=== PATIENT | female | born 1995 | race Caucasian/White ===

== ENCOUNTER 2024-10-01 09:50 | Emergency (ER) | payer MEDICAID, SELFPAY ==
[2024-10-01 10:21] VITALS: BP 113/80; PULSE 85; RESP 16; TEMP 36.8; O2SAT 99; BMI 30.2
--- NOTE | 2024-10-01 10:35 | PC.NURSE ---
no answer in lobby when called for room in ed
--- NOTE | 2024-10-01 11:24 | PD.EDRME ---
Rapid Medical Screening Exam E Arrival date/time: 10/01/24 09:50 29-year-old female presents to the emergency department with complaints of generalized abdominal pain. I have greeted and performed a focused initial assessment of this patient. Initial appropriate labs ordered at this time. A comprehensive ED assessment and evaluation of the patient and analysis of all test and completion of medical decision making process will be conducted by additional ED provider. Chief Complaint: Abdominal Pain Time Seen by Provider: 10/01/24 10:29 Vital signs: Vital Signs Temperature 98.2 F 10/01/24 10:21 Pulse Rate 85 10/01/24 10:21 Respiratory Rate 16 10/01/24 10:21 Blood Pressure 113/80 10/01/24 10:21 Pulse Oximetry (%) 99 10/01/24 10:21 Oxygen Delivery Method Room Air 10/01/24 10:21
--- NOTE | 2024-10-01 12:05 | PC.NURSE ---
no answer in lobby when called for room in ed
--- NOTE | 2024-10-01 13:59 | PC.NURSE ---
no answer in lobby when called for room in ed
--- NOTE | 2024-10-01 14:01 | PC.NURSE ---
no answer in lobby when called for room in ed
== END 2024-10-01 10:35 | disposition left against medical advice (07) ==
PROVIDERS: Emergency Provider Emergency Medicine
DX: R10.84 Generalized abdominal pain (principal); Z53.21 Procedure and treatment not carried out due to patient leaving prior to being seen by health care provider
CPT/HCPCS: 99281

== ENCOUNTER 2025-01-24 14:06 | Emergency (ER) | payer MEDICAID, SELFPAY ==
[2025-01-24 14:07] VITALS: BMI 30.5
[2025-01-24 14:20] VITALS: BP 124/81; PULSE 79; RESP 16; TEMP 37.1; O2SAT 99
--- NOTE | 2025-01-24 14:43 | EDNOTE_ITS ---
ED Wound/Laceration-RME/HPI General Chief Complaint: Wound/Laceration Stated Complaint: LAC R) MIDDLE FINGER; CUT ON PADDOCK JUDGE BLADE Time Seen by Provider: 01/24/25 14:11 Arrival date/time: 01/24/25 14:06 29-year-old [id number] female presents to the ED with a chief complaint of right middle finger laceration secondary to an injury she states sustained at home. She was trying to empty out a manager fast food when the blade fell out of place and came down and struck her right middle fingertip. She denies any numbness or tingling distally she indicates she is up-to-date on her tetanus. Limitations: no limitations Related Data Previous Rx's ?Medication ?Instructions ?Recorded meclizine 25 mg tablet 25 mg PO BID PRN dizziness # 20 tabs 05/22/22 ondansetron HCl 4 mg tablet 4 mg PO TID #20 tabs 05/22 Allergies Allergy/AdvReac Type Severity Reaction Status Date / Time egg Allergy Severe Vomiting Verified 01/24/25 14:09 metformin Allergy Severe Vomiting Verified 01/24/25 14:09 Review of Systems Review of Systems Systems Reviewed: All systems reviewed, normal except as documented Narrative Review of Systems: Denies recent illness with Fever, chills, cough, upper respiratory symptoms, nausea, vomiting, diarrhea, or abdominal pain. Past Medical History Past Medical History NEUROLOGIC: Negative Neurological Disorders or Seizures CARDIAC: Negative Cardiac Disorders, Congestive Heart Failure, Edema, Cellulitis or Varicose Veins RESPIRATORY: Negative Chronic Obstructive Pulmonary Disease (COPD), Tuberculosis, Pulmonary Embolism or Sleep Apnea GASTROINTESTINAL: Positive Gastrointestinal Disorders, Gall Bladder Disease (FOR THIS PROC) and Gastroesophageal Reflux Disease (OTC); Negative Hepatitis GENITOURINARY: Negative Genitourinary Disorders or Renal Disease REPRODUCTIVE: Negative Previous Pregnancies MUSCULOSKELETAL: Negative Musculoskeletal Disorders ENDOCRINE: Positive Endocrine Disorders and Diabetes Mellitus Type 2 (TAKES PO MED); Negative Diabetes Mellitus Type 1 HEMATOLOGIC: Negative Blood Disorders OTHER HISTORY: Negative Hospitalization, Autoimmune Disease, Shingles, Falls, Blood Transfusions, Blood Transfusion Reaction, Anesthesia Reactions, Chemothera py, Radiation Therapy, MRSA, Chicken Pox, Measles, Mumps or Cancer Family History FAMILY HISTORY: Positive Family Cardiac Disorders (MOTHER (HTN)) and Family Surgery (FATHER,MOTHER); Negative Family Psychiatric Problems, Family Respiratory Disorders, Family Gastrointestinal Problems, Family Cancer or Family Anesthesia Reaction Surgical History SURGICAL: Positive Abdominal Surgery (gastric sleeve); Negative Pacemaker Social History SMOKING STATUS: Never smoker SECOND HAND EXPOSURE: Yes (fiancee smokjes occasionally) SUBSTANCE USE: does not use ED Exam Narrative Physical exam: 29-year-old female no acute distress, right middle finger laceration to the fingertip. No nail injury. Skin flap intact. Neuro/sensory intact distally. General Limitations: Present no limitations General appearance: Present alert and in no apparent distress Head Head exam: Present atraumatic and normal inspection Eye Eye exam: Present normal appearance; Absent scleral icterus or conjunctival injection ENT ENT exam: Present normal exam Neck Neck exam: Present normal inspection Chest Chest inspection: Present normal inspection Respiratory Respiratory exam: Absent respiratory distress Cardiovascular Cardiovascular exam: Present regular rate and normal rhythm Abdominal Exam Abdominal exam: Absent distention Extremities Exam Extremities exam: Present full ROM, tenderness and normal capillary refill Expanded Upper Extremity Exam Hand exam: Present full ROM, tenderness and laceration (Approximate 1 cm laceration to the right distal phalanx, not involving the nail.) Vascular exam: Normal capillary refill Back Exam Back exam: Present full ROM Neurological Exam Neurological exam: Present alert and oriented X3 Psychiatric Psychiatric exam: Present normal affect and normal mood Skin Skin exam: Present warm, dry, intact and normal color Course Course Course Narrative: 29-year-old [id number] female presents to the ED with a chief complaint of right middle finger laceration secondary to an injury she states sustained at home. She was trying to empty out a manager fast food when the blade fell out of place and came down and struck her right middle fingertip. She denies any numbness or tingling distally she indicates she is up-to-date on her tetanus. 29-year-old female no acute distress, right middle finger laceration to the fingertip. No nail injury. Skin flap intact. Neuro/sensory intact distally. Anesthesia with 1% lidocaine without epi. Wound explored, no foreign body present wound irrigated. Wound closure with number three 4-0 nylon simple interrupted sutures with good wound edge approximation. Patient tolerated procedure well. Wound was then cleansed, antibiotic ointment applied and a clean dressing. Vital Signs Vital signs: Vital Signs Temperature 98.7 F 01/24/25 14:20 Pulse Rate 79 01/24/25 14:20 Respiratory Rate 16 01/24/25 14:20 Blood Pressure 124/81 01/24/25 14:20 Pulse Oximetry (%) 99 01/24/25 14:20 Oxygen Delivery Method Room Air 01/24/25 14:20 Procedures -ED Laceration Right distal middle finger: Site: hand (Right middle finger) Side (If applicable): right Size (cm): 1.0 Description: linear Depth: simple, single layer Local Anesthetic: lidocaine 1% Amount of anesthesia used (mL): 2.0 Pre-repair: wound explored and irrigated extensively Skin layer closed with: nylon Size (cm): 5-0 Number of sutures: 3 Technique: simple, interrupted Wound / Laceration Patient data External records reviewed:: None Clinical information provided by:: patient Social determinants that could affect healthcare access:: none Patient has the following chronic illnesses:: None How is presenting disease/condition affected by chronic disease/condition?: no chronic disease Discharge Plan Plan Patient Disposition: HOME (Self Care) Disposition Comment: Stable and improved Prescriptions/Referrals Prescriptions/Med Rec: No Action meclizine 25 mg tablet 25 mg PO BID PRN (Reason: dizziness) Qty: 20 0RF ondansetron HCl 4 mg tablet 4 mg PO TID Qty: 20 0RF Problem List Clinical Impression: Laceration Patient/Caregiver Discharge Instructions Education Materials: ED Laceration, Hand: All Closures Additional Instructions: Keep the wound clean and dry do not expose it to excessive amounts of moisture. Suture removal in 10 days. Watch for any signs of infection which include redness, swelling, drainage. Follow-up with your primary care physician in 24 to 48 hours. Return to the ED for any new or worsening symptoms. Print Language: Mozambican Stand Alone Forms: Marilee Award Info., Patient Portal Info Letter PA/IT SERVICE DELIVERY MANAGER Supervising Physician PA/IT SERVICE DELIVERY MANAGER Supervising Physician: Dr. Brown
== END 2025-01-24 15:08 | disposition home or self-care (01) ==
LOC: SERX 14:57
PROVIDERS: Emergency Provider Family Medicine
DX: S61.212A Laceration without foreign body of right middle finger without damage to nail, initial encounter (principal); W26.8XXA Contact with other sharp object(s), not elsewhere classified, initial encounter
CPT/HCPCS: 12001; 99283

== ENCOUNTER 2025-07-27 16:05 | Emergency (ER) | payer MEDICAID, SELFPAY ==
[2025-07-27 16:06] VITALS: BMI 31.0
[2025-07-27 16:23] VITALS: BP 116/78; PULSE 74; RESP 16; TEMP 36.8; O2SAT 100
--- NOTE | 2025-07-27 16:31 | XR_ITS ---
Examination: CT brain head without contrast. 2-D sagittal coronal reconstructions Date and time of exam: July 27, 2025, 1802 hours INDICATIONS: Helium tank hit the top of the head followed by headache dizziness nausea today CTDI: vol (mGy): 53.4 DLP: (mGycm): 1089 Technique: Multiple CT axial sections of the brain have been obtained, 5 mm slice thickness. Contrast has not been administered. 2-D sagittal, coronal reconstructions have been obtained Low dose protocols were performed. One or more of the following dose reduction techniques were used; automated exposure control, adjustment of the mA and/or KV according to patient size, use of iterative reconstruction technique. Findings: No significant ventricular enlargement. Axial image 23 demonstrates 3 x 2 cm focal area of low density which could represent a frontal contusion Intra-axial or extra-axial hemorrhage density is not seen. No mass effect or midline shift Basal cisterns are not remarkable. Fourth ventricle is midline. Cranial vault intact. Impression: Negative for acute hemorrhage or mass effect 3 x 2 focal area of subtle low density in the left frontal lobe which could represent a frontal lobe contusion, clinical correlation advised Consider MRI brain without contrast follow-up
--- NOTE | 2025-07-27 16:31 | XR_ITS ---
Examination: CT cervical spine without contrast 2-D sagittal reconstructions 2-D coronal reconstructions 3-D reconstructions. Exam date and time: July 27, 2025, 1802 hours INDICATIONS: Hit on the top of the head with a helium tank today followed by head pain and neck pain CTDI:vol (mGy) 14.9 DLP: (mGycm) 353 Technique: Multiple 2 mm axial sections of the cervical spine have been obtained. The coronal and sagittal reconstructions have been obtained. 3-D reconstructions have been obtained. Low dose protocols were performed. One or more of the following dose reduction techniques were used; automated exposure control, adjustment of the mA and/or KV according to patient size, use of iterative reconstruction technique. Findings: Axial sections demonstrate intact base of the skull. Reversal normal cervical lordosis C1 exhibit satisfactory relationship to the odontoid. No acute cervical vertebral body fracture seen. Alignment posterior spinous processes satisfactory. Impression: No acute cervical fracture.
--- NOTE | 2025-07-27 16:31 | PD.EDRME ---
Rapid Medical Screening Exam [facility] Arrival date/time: 07/27/25 16:05 30-year-old female with no known medical history presents to the emergency room with a chief complaint of a helium tank falling from the top shelf and hitting her in the head while at work 1 hour ago I have greeted and performed a focused initial assessment of this patient. A comprehensive ED assessment and evaluation of the patient, analysis of all test results, and completion of the medical decision making process will be conducted by additional ED providers. Chief Complaint: Head Injury Time Seen by Provider: 07/27/25 16:22 Vital signs: Vital Signs Temperature 98.3 F 07/27/25 16:23 Pulse Rate 74 07/27/25 16:23 Respiratory Rate 16 07/27/25 16:23 Blood Pressure 116/78 07/27/25 16:23 Pulse Oximetry (%) 100 07/27/25 16:23 Oxygen Delivery Method Room Air 07/27/25 16:23 Vital signs reviewed by provider: Yes
--- NOTE | 2025-07-27 22:16 | PD.EDHEAD ---
ED Head Injury RME/HPI General Chief complaint: Head Injury Stated complaint: HEAD INJURY AT WORK Time Seen by Provider: 07/27/25 16:22 Arrival date/time: 07/27/25 16:05 Limitations: no limitations RME / HPI RME / HPI Narrative: 07/27/25 16:05 30-year-old female with no known medical history presents to the emergency room with a chief complaint of a helium tank falling from the top shelf and hitting her in the head while at work 1 hour ago I have greeted and performed a focused initial assessment of this patient. A comprehensive ED assessment and evaluation of the patient, analysis of all test results, and completion of the medical decision making process will be conducted by additional ED providers. Dr. George evaluation Patient is a 30-year-old female no significant past medical history, that is in the emergency department after incurring head trauma when a helium tank fell off the top shelf at her workplace and hit her approximately 1 hour prior to arrival. Related Data Previous Rx's ?Medication ?Instructions ?Recorded meclizine 25 mg tablet 25 mg PO BID PRN dizziness #20 tabs 05/22/22 ondansetron HCl 4 mg tablet 4 mg PO TID #20 tabs 05/22/22 Allergies Allergy/AdvReac Type Severity Reaction Status Date / Time egg Allergy Severe Vomiting Verified 07/27/25 16:10 metformin Allergy Severe Vomiting Verified 07/27/25 16:10 ED Exam General Limitations: Present no limitations General appearance: Present alert and in no apparent distress Head Head exam: Present atraumatic and normocephalic Eye Eye exam: Present normal appearance, PERRL and EOMI ENT ENT exam: Present normal exam, normal oropharynx and mucous membranes moist Neck Neck exam: Present normal inspection and full ROM; Absent tenderness Chest Chest inspection: Present normal inspection and symmetric chest wall rise Respiratory Respiratory exam: Present normal lung sounds bilaterally; Absent respiratory distress Cardiovascular Cardiovascular exam: Present regular rate Abdominal Exam Abdominal exam: Present soft; Absent distention or tenderness Extremities Exam Extremities exam: Present normal inspection and full ROM Neurological Exam Neurological exam: Present alert, oriented X3, CN II-XII intact, normal gait and other (No focal) Course Orders Category Date Time Status CT cervical spine wo con Stat Exams 07/27/25 16:[address] head/brain wo con Stat Exams 07/27/25 16:31 Completed Vital Signs Vital signs: Vital Signs Temperature 98.3 F 07/27/25 16:23 Pulse Rate 74 07/27/25 16:23 Respiratory Rate 16 07/27/25 16:23 Blood Pressure 116/78 07/27/25 16:23 Pulse Oximetry (%) 100 07/27/25 16:23 Oxygen Delivery Method Room Air 07/27/25 16:23 Head Injury MDM Narrative MDM Narrative:: Patient is a 30-year-old female is in the emergency department with concerns for head pain after having had a helium tank fell on her head while at work earlier today. Vital signs and exam as listed. Prior provider evaluated patient. Ordered head CT as well as cervical spine CT. Concern for skull fracture dislocation, intracranial hemorrhage among others. Patient without any midline tenderness palpation of lower cervical spine. CT brain did not identify any acute hemorrhage or mass effect. There is a 3 x 2 cm focal area of subtle low-density in the left frontal lobe concerning for possible contusion. CT cervical spine unremarkable. Discharge Plan Prescriptions/Referrals Prescriptions/Med Rec: No Action meclizine 25 mg tablet 25 mg PO BID PRN (Reason: dizziness) Qty: 20 0RF ondansetron HCl 4 mg tablet 4 mg PO TID Qty: 20 0RF Referrals: No Primary/Family,Physician [Primary Care Provider] - In 1 week Patient/Caregiver Discharge Instructions Print Language: Greenlandic
--- NOTE | 2025-07-27 22:23 | PC.NURSE ---
PT CALLED FROM [facility] NO ANSWER
--- NOTE | 2025-07-27 22:31 | PC.NURSE ---
PT CALLED FROM [facility] NO ANSWER
--- NOTE | 2025-07-27 22:39 | PC.NURSE ---
PT CALLED FROM [facility] NO ANSWER
--- NOTE | 2025-07-28 17:35 | PC.NURSE ---
Informed pt. per Dr. Ng request that she has a bruise and should follow up with her primary M.D. or return to the ER if needed. Pt. states she still has a bad SMITH, pt. requests a copy of CT results, inform pt. 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 Pt. states she will and thank you for calling.
== END 2025-07-28 00:05 | disposition left against medical advice (07) ==
PROVIDERS: Emergency Provider Emergency Medicine
DX: Z53.21 Procedure and treatment not carried out due to patient leaving prior to being seen by health care provider (principal)
CPT/HCPCS: 70450; 72125; 99281

== ENCOUNTER 2025-08-06 19:20 | Emergency (ER) | payer MEDICAID, SELFPAY ==
[2025-08-06 19:21] VITALS: BMI 30.7
[2025-08-06 19:33] VITALS: BP 118/81; PULSE 72; RESP 19; TEMP 36.9; O2SAT 99
--- NOTE | 2025-08-06 19:59 | PD.EDRME ---
Rapid Medical Screening Exam RME Arrival date/time: This is a case of 30-year-old female with no medical history came in in the emergency room due to vaginal bleeding and pelvic cramping for 2 days patient is 4 weeks 9 para 1 7 miscarriage Chief Complaint: Vaginal Bleeding Time Seen by Provider: 08/06/25 19:30 Vital signs: Vital Signs Temperature 98.4 F 08/06/25 19:33 Pulse Rate 72 08/06/25 19:33 Respiratory Rate 19 08/06/25 19:33 Blood Pressure 118/81 08/06/25 19:33 Pulse Oximetry (%) 99 08/06/25 19:33 Oxygen Delivery Method Room Air 08/06/25 19:33 Exam: Abdominal exam is benign nonsurgical no guarding no rebound no tenderness Clinical Impression: Vaginal bleeding in
--- NOTE | 2025-08-06 20:00 | XR_ITS ---
Examination: Complete OB ultrasound, less than 14 weeks, transabdominal Date and time of exam: August 06, 2025, 2041 hours INDICATION: Heavy vaginal bleeding onset today. Technique: Obstetrical ultrasound images less than 14 weeks performed via transabdominal imaging Findings: Uterus 7.3 cm endometrial stripe 0.4 cm No uterine mass or intrauterine gestation Right ovary 3.9 cm arterial flow Left ovary 2.8 cm arterial flow No fluid in the cul-de-sac IMPRESSION: Negative pelvic sonogram
[2025-08-06 20:40] LABS: Basophils # (Auto) 0.1 Thou/mm3 (0.0-0.2); Basophils % (Auto) 1 % (0-2.5); Eosinophils # (Auto) 0.2 Thou/mm3 (0.0-0.5); Eosinophils % (Auto) 3 % (0-10); Hematocrit 35.1 % (36.0-46.0); Hemoglobin 11.3 g/dL (12.0-16.0); Immature Granulocytes Auto 0.01 Thou/mm3 (0.00-0.00); Lymphocytes # (Auto) 2.7 Thou/mm3 (1.0-4.8); Lymphocytes % (Auto) 38 % (10-50); Mean Corpuscular HGB Conc 32.2 g/dl (31.0-37.0); Mean Corpuscular Hemoglobin 27.3 pg (25.0-35.0); Mean Corpuscular Volume 85 fL (80-100); Monocytes # (Auto) 0.6 Thou/mm3 (0.0-0.8); Monocytes % (Auto) 9 % (0-12); Neutrophils # (Auto) 3.6 Thou/mm3 (1.8-7.7); Neutrophils % (Auto) 50 % (37-80); Nucleated Red Blood Cell # 0.00 Thou/mm3 (0.00-0.00); Nucleated Red Blood Cell % 0 /100 WBC (0); Platelet Count 308 Thou/mm3 (140-440); RDW Standard Deviation 44.0 fL (36.4-46.3); Red Blood Count 4.14 Miln/mm3 (4.00-5.20); White Blood Count 7.2 Thou/mm3 (3.6-11.0)
[2025-08-06 20:52] LABS: Alanine Aminotransferase 15 U/L (10-49); Albumin, Serum 4.7 gm/dL (3.5-5.0); Albumin/Globulin Ratio 1.7 (1.2-2.2); Alkaline Phosphatase 75 U/L (46-116); Anion Gap 8 (7-16); Aspartate Amino Transferase 16 U/L (0-34); BUN/Creatinine Ratio 10 Ratio (12-20); Beta HCG,Quantitative 32 mIU/mL (<5.0); Bilirubin,Total 0.4 mg/dL (0.3-1.2); Blood Urea Nitrogen 6 mg/dL (9-23); Calcium 9.3 mg/dL (8.3-10.6); Calcium (Corrected) 9.3 mg/dL (8.5-10.1); Carbon Dioxide 25.3 mMol/L (20.0-31.0); Chloride 108 mMol/L (98-107); Creatinine (Component) 0.6 mg/dL (0.6-1.3); Estimated Creatinine Clearance 169.2 mL/min (>60); Globulin 2.8 gm/dL (2.3-3.5); Glucose 84 mg/dL (74-106); Osmolality,Calculated 277 (275-295); Potassium 4.0 mMol/L (3.4-5.1); Sodium 141 mMol/L (136-145); Total Protein 7.5 gm/dL (5.7-8.2); eGFR > 60 See Note
[2025-08-06 20:56] LABS: Collection Type, Urine Voided
[2025-08-06 21:00] LABS: Bilirubin,Urine Negative (Negative); Blood,Urine 3+ (Negative); Clarity,Urine Clear (Clear/Hazy); Color,Urine Yellow (Lt Yel-Yel); Glucose, Urine Negative (Negative); Ketones,Urine Negative (Negative); Leukocyte Esterase,Urine Negative (Negative); Nitrite,Urine Negative (Negative); PH,Urine 6.0 (5.0-7.0); Protein,Urine 1+ (Neg - Trace); RBC,Urine 96 /hpf (0-3); Specific Gravity,Urine 1.034 (1.001-1.035); Squamous Epithelial Cell,Urine 2 /hpf (0-5); Urobilinogen,Urine 3.0 mg/dL (0.0-1.0); WBC,Urine 2 /hpf (0-5)
--- NOTE | 2025-08-06 21:22 | PD.EDVAGBL ---
ED OB Contraction Preg RMI/HPI General Chief complaint: Vaginal Bleeding Stated complaint: VAGINAL BLEEDING Time Seen by Provider: 08/06/25 19:30 Arrival date/time: 08/06/25 19:20 30-year-old female patient was brought in by family for evaluation regarding vaginal bleeding. Onset of symptoms since earlier this morning as vaginal bleeding, described as heavy associated with passing of blood clots. Patient also complained of pelvic discomfort. Patient is 9, para 1 7, last menstrual period a month ago. Patient denies any other complaints. No medication was taken prior to ER visit. RME / HPI RME / HPI Narrative: This is a case of 30-year-old female with no medical history came in in the emergency room due to vaginal bleeding and pelvic cramping for 2 days patient is 4 weeks 9 para 1 7 miscarriage Exam: Abdominal exam is benign nonsurgical no guarding no rebound no tenderness Impression: Vaginal bleeding in Related Data Previous Rx's ?Medication ?Instructions ?Recorded meclizine 25 mg tablet 25 mg PO BID PRN dizziness #20 tabs 05/22/22 ondansetron HCl 4 mg tablet 4 mg PO TID #20 tabs 05/22/22 Allergies Allergy/AdvReac Type Severity Reaction Status Date / Time egg Allergy Severe Vomiting Verified 08/06/25 19:23 metformin Allergy Severe Vomiting Verified 08/06/25 19:23 Review of Systems Review of Systems Narrative Review of Systems: Review of system reviewed and within normal limits except mentioned in HPI ED Exam Narrative Physical exam: VITAL SIGNS: Reviewed. GENERAL APPEARANCE: Alert and interactive, follows commands, no acute distress, HEAD AND FACE: Non-traumatic. ENT: PERRL, pink conjunctivitis, eyelid no trauma, Mucous membrane moist. NECK: Supple, nontender, no nuchal rigidity. CHEST: No tenderness, no crepitus, no paradoxical movement, no retractions. LUNGS: Clear, well ventilated, symmetric, no rales, no wheezing, no ronchi, no stridor, good breath sounds bilaterally. HEART: Regular rate, regular rhythm, no murmur, no gallops. ABDOMEN: Soft, positive bowel sounds, nondistended, no guarding, nontender, no rebound, no masses, RECTAL: Deferred. GENITAL: Deferred. NEUROLOGICAL: Gross motor function intact sensory function intact, Appropriate for age. MUSCULOSKELETAL: low back nontender, full range of motion. EXTREMITIES: Nontender, full range of motion. SKIN: Color pink, dry, no rash, no lacerations, no abrasions, no contusions. LYMPHATICS: Deferred. Course Quality Measures none Orders Category Date Time Status US OB <= 14 weeks fetus Stat Exams 08/06/25 20:00 Completed ABO/RH Type Stat Lab 08/06/25 20:16 Completed Beta HCG,Quantitative Stat Lab 08/06/25 20:16 Completed CBC Stat Lab 08/06/25 20:16 Completed CMP [Comprehensive Metabolic Panel] Stat Lab 08/06/25 20:16 Completed Urinalysis Stat Lab 08/06/25 20:41 Completed Vital Signs Vital signs: Vital Signs Temperature 98.4 F 08/06/25 19:33 Pulse Rate 72 08/06/25 19:33 Respiratory Rate 19 08/06/25 19:33 Blood Pressure 118/81 08/06/25 19:33 Pulse Oximetry (%) 99 08/06/25 19:33 Oxygen Delivery Method Room Air 08/06/25 19:33 Vaginal Bleeding MDM Narrative MDM Narrative: 08/06/25 19:20 30-year-old female patient was brought in by family for evaluation regarding vaginal bleeding. Onset of symptoms since earlier this morning as vaginal bleeding, described as heavy associated with passing of blood clots. Patient also complained of pelvic discomfort. Patient is 9, para 1 7, last menstrual period a month ago. Patient denies any other complaints. No medication was taken prior to ER visit. Patient's workup came back with hCG 0.37, otherwise unremarkable. Ultrasound of the showed no pelvic abnormality noted no IUP noted. Results discussed with the patient and family. Patient was advised to return to emergency room in 2 to 3 days for repeat hCG. She stable for discharge home Patient data External records reviewed:: None Clinical information provided by:: patient Social determinants that could affect healthcare access:: none Patient has the following chronic illnesses:: Diabetes mellitus How is presenting disease/condition affected by chronic disease/condition?: uneffected by Evaluation data The following diagnostics were reviewed and interpreted by me:: lab results and radiology exam(s) Lab and/or radiology exams considered but not ordered:: None Interpretation Summary: See results MDM Medications / Prescriptions Medications or Prescriptions considered but not ordered:: None Medication administrations:: None Consultations Consultation(s) initiated? (list below): No Diagnosis Vaginal Bleeding Differential Diagnosis: missed , threatened , incomplete and vaginal bleeding Most likely diagnosis given after review of the tests above:: Threatened , vaginal bleeding Admission Indicated Admission indicated?: not indicated Explain why admission is indicated or not indicated:: Stable Admission Request Was there a request for admission?: No Disposition Plan Disposition Plan: Discharge Discharge Attestation Discharge Attestation: The patient and all family members were given an opportunity to ask questions and understood the discharge instructions. Discharge instructions specifically effects, indications for sooner follow up or return to the emergency department, and the expected course of current diagnosis. Patient condition: Stable Discharge Plan Plan Patient Disposition: HOME (Self Care) Discharge Disposition comment: Stable Prescriptions/Referrals Prescriptions/Med Rec: No Action meclizine 25 mg tablet 25 mg PO BID PRN (Reason: dizziness) Qty: 20 0RF ondansetron HCl 4 mg tablet 4 mg PO TID Qty: 20 0RF Referrals: No Primary/Family,Physician [Primary Care Provider] - In 1 week Problem List Clinical Impression: Threatened , Vaginal bleeding Patient/Caregiver Discharge Instructions Education Materials: ED Possible Miscarriage ... Additional Instructions: Thank you for the opportunity for serving you today. You are stable for discharged . You are advised to: Follow-up with your PCP in 1 to 2 days Return to ED for worsening of symptoms Increase oral fluids Pelvic rest no sex for 1 week under cleared by INSULATION INSTALLER Return to emergency room in 2 days for repeat hCG Print Language: Somali Stand Alone Forms: Marilee Award Info., Patient Portal Info Letter MABLE/EDGARDO Supervising Physician SABINE Supervising Physician: MD Elfego
== END 2025-08-06 21:30 | disposition home or self-care (01) ==
PROVIDERS: Nurse Practitioner Family; Emergency Provider Emergency Medicine
DX: O03.9 Complete or unspecified spontaneous abortion without complication (principal); Z3A.01 Less than 8 weeks gestation of pregnancy
CPT/HCPCS: 36415; 76801; 80053; 81001; 84702; 85025; 86900; 86901; 99283